=== PATIENT | male | born 1985 | race Caucasian/White ===

== ENCOUNTER 2017-12-06 17:23 | Observation (INO) ==
[2017-12-06] MEDS ORDERED: Ondansetron ODT 4 MG TAB.RAPDIS SL STA (18:56)
[2017-12-06] MEDS ORDERED: 0.9 % Sodium Chloride 1,000 ML IVC ONE ×2 (18:56→20:34)
--- NOTE | 2017-12-06 18:57 | Emergency Department Note ---
Disposition Clinical Impression: Dehydration, Hyperkalemia, GARCIA (acute kidney injury) Disposition: Admitted As Inpatient Condition: Good General Adult HPI - General Chief complaint: ED General Medical Stated complaint: dizziness, muscle cramps Time Seen by Provider: 12/06/17 18:30 Source: patient Mode of arrival: private vehicle Limitations: no limitations Nursing Notes Reviewed: Yes Vital Signs Reviewed: Yes - History of Present Illness HPI Narrative: Patient presents to the ED complaining of muscle cramps, nausea and vomiting. States he was working outside all day in the heat at the local [facility]. States he became very hot and had been sweating heavily and then suddenly stopped sweating. He reports one episode of vomiting while at work and 5 additional episodes since he arrived home. He still feels nauseous currently. He reports generalized muscle cramps throughout his body. Denies any fever or chills. No abdominal pain. No chest pain or shortness of breath. His only medical issues are GERD and COPD. He takes Zantac and Aleve as needed. He does not have a primary care doctor. He is not taking anything for his symptoms at home. Pain Scale: 8 - Related Data Home Medications Medication Instructions Recorded Confirmed Ranitidine HCl [Zantac 75] 75 mg PO DAILY 12/01/15 12/06/17 Naproxen Sodium [Aleve] 220 mg PO BID 03/30/16 12/06/17 Allergies Allergy/AdvReac Type Severity Reaction Status Date / Time diphenhydramine AdvReac Rash Verified 12/06/17 17:24 [From uAstin] Constitutional: Denies: fever, chills, weakness, weight change Eyes: Denies: eye pain, eye discharge, vision change ENT ED: Denies: ear pain, throat pain, dental pain, hearing loss, epistaxis, congestion, dysphagia Cardiovascular: Denies: chest pain, palpitations, dyspnea on exertion, edema, syncope Respiratory: Denies: cough, dyspnea, wheezes, hemoptysis, stridor Gastrointestinal: Reports: nausea, vomiting. Denies: abdominal pain, diarrhea, constipation, hematemesis, melena, hematochezia Genitourinary: Denies: urgency, dysuria, frequency, hematuria Musculoskeletal: Reports: myalgia (generalized) Integumentary: Denies: rash, abrasion, lesions Neurological: Denies: headache, weakness, numbness, paresthesias, confusion, abnormal gait, vertigo Psychiatric: Denies: anxiety, depression, suicidal thoughts, homicidal thoughts , auditory hallucinations, visual hallucinations Endocrine: Denies: fatigue Hematological/Lymphatic: Denies: easy bleeding, easy bruising Allergic/Immunologic: Denies: facial swelling, urticaria Past Medical History - Past Medical History Medical history: Reports: arthritis, COPD, GERD, other Surgical history: Reports: no surgical history Psychiatric history: Reports: no psych history - Social History Smoking Status: Current every day smoker Smokeless Tobacco Status: No Alcohol use: Reports: rarely Drug use: Reports: marijuana Physical Exam - General Limitations: no limitations General appearance: alert, in no apparent distress - Head Head exam: atraumatic, normocephalic, normal inspection - Eye Eye exam: Present: normal appearance, PERRL, EOMI - ENT ENT exam: normal exam, normal oropharynx, mucous membranes dry - Neck Neck exam: Present: normal inspection, full ROM, trachea midline - Chest Chest inspection: Present: normal inspection, symmetric chest wall rise - Respiratory Respiratory exam: Present: normal lung sounds bilaterally - Cardiovascular Cardiovascular exam: Present: regular rate, normal rhythm, normal heart sounds - Abdominal Exam Abdominal exam: Present: soft, Non-Tender. Absent: tenderness, distention, guarding, rebound, rigidity - Extremities Exam Extremities exam: Present: normal inspection, full ROM. Absent: tenderness, pedal edema - Back Exam Back exam: Present: normal inspection, full ROM. Absent: tenderness - Neurological Exam Neurological exam: Present: alert, oriented X3 - Psychiatric Psychiatric exam: Present: normal affect, normal mood - Skin Skin exam: Present: warm, dry, intact, normal color Course Course Narrative: Patient presents to the ED complaining of nausea, vomiting and muscle cramps after working outdoors all day. He arrives hemodynamically stable and nontoxic in appearance other than he is having obvious muscle spasms and cramping. I suspect heat cramps versus heat exhaustion versus dehydration or rhabdomyolysis. We will give IV fluids while laboratory studies are obtained. - Reevaluation(s) Reevaluation #1: CBC shows a leukocytosis, likely due to his vomiting. BMP is notable for hyperkalemia of 5.9 and creatinine of 2.53. Patient has no history of kidney disease and last creatinine on record over 2 years ago was normal. Calcium and creatine are also slightly elevated. Discussed with patient need for admission for continued hydration and treatment of his hyperkalemia and he is in agreement. We will continue with IV fluids, check EKG and give medications to treat his hyperkalemia. Reevaluation #2: Spoke to the hospitalist, Dr. Anderson, who has accepted the patient. Vital Signs Temperature 97.8 F 12/06/17 17:28 Pulse Rate 92 12/06/17 17:28 Respiratory Rate 18 12/06/17 17:28 Blood Pressure 119/81 12/06/17 17:28 O2 Sat by Pulse Oximetry 97 12/06/17 17:28 Temperature 97.9 F 12/06/17 23:49 Pulse Rate 80 12/06/17 23:49 Respiratory Rate 18 12/06/17 23:49 Blood Pressure 135/55 12/06/17 23:49 O2 Sat by Pulse Oximetry 95 12/06/17 23:49 Oxygen Delivery Oxygen Delivery Room Air Medical Decision Making - Medical Records Medical records reviewed: Yes I reviewed the patient's medical records. - Lab Data Lab results reviewed: Yes I reviewed the patient's lab results. Result diagrams: 12/06/17 19:06 12/06/17 19:06 Lab Results 12/06/17 12/06/17 Range/Units 19:06 19:06 WBC 20.5 H (4.3-11.1) K/mcL RBC 5.93 H (4.19-5.50) M/mcL Hgb 18.6 H (12.9-16.9) g/dL Hct 54.2 H (37.5-50.1) % MCV 91.4 (83.0-100.0) fL MCH 31.4 (28.0-33.3) pg MCHC 34.3 (31.6-35.5) g/dL RDW 13.4 (11.5-14.5) % Plt Count 362 (140-400) K/mcL MPV 8.4 L (9.4-12.4) fL Immature Gran % 0.4 (0-4) % Seg Neutrophils % 81.5 % Lymphocytes % 8.5 % Monocytes % 9.1 % Eosinophils % 0.1 % Basophils % 0.4 % Neutrophils # 16.7 H (1.6-8.9) K/mcL Lymphocytes # 1.7 (0.6-4.6) K/mcL Monocytes # 1.9 H (0.0-1.3) K/mcL Eosinophils # 0.0 (0.0-0.6) K/mcL Basophils # 0.1 (0.0-0.2) K/mcL Sodium 136 (136-145) mEq/L Potassium 5.9 H (3.5-5.1) mEq/L Chloride 97 L (98-107) mEq/L Carbon Dioxide 25 (23-29) mEq/L BUN 24 H (6-20) mg/dL Creatinine 2.53 H (0.70-1.30) mg/dL Est GFR ( Amer) 36 L (> 60) Est GFR (Non-Af Amer) 29 L (> 60) BUN/Creatinine Ratio 9 (6-26) Glucose 127 H (70-105) mg/dL Calculated Osmolality 288 (280-300) Calcium 11.0 H (8.6-10.3) mg/dL - EKG Data EKG #1 EKG attestation: Yes I reviewed and interpreted this EKG. EKG shows normal: sinus rhythm Rate: normal Rhythm: NSR [place]/QRS: normal Interpretation: other (peaked T-waves)
[2017-12-06 19:11] LABS: Basophils # 0.1 K/mcL (0.0-0.2); Basophils % 0.4 %; Eosinophils % 0.1 %; Hematocrit 54.2 % (37.5-50.1); Hemoglobin 18.6 g/dL (12.9-16.9); Immature Granulocytes % 0.4 % (0-4); Lymphocytes # 1.7 K/mcL (0.6-4.6); Lymphocytes % 8.5 %; Mean Corpuscular HGB Conc 34.3 g/dL (31.6-35.5); Mean Corpuscular Hemoglobin 31.4 pg (28.0-33.3); Mean Corpuscular Volume 91.4 fL (83.0-100.0); Mean Platelet Volume 8.4 fL (9.4-12.4); Monocytes # 1.9 K/mcL (0.0-1.3); Monocytes % 9.1 %; Neutrophils # 16.7 K/mcL (1.6-8.9); Platelet Count 362 K/mcL (140-400); Red Blood Count 5.93 M/mcL (4.19-5.50); Red Cell Distribution Width 13.4 % (11.5-14.5); Segmented Neutrophils % 81.5 %
[2017-12-06 19:27] LABS: Potassium 5.9 mEq/L (3.5-5.1)
[2017-12-06] MEDS ORDERED: *HR* Dextrose 50 % in Water (Syg) 50 ML SYRINGE IVP ONE (20:36)
[2017-12-06] MEDS ORDERED: Insulin Human Regular 10 UNIT in 0.9 % Sodium Chloride 10 ML IV ONE (20:36)
[2017-12-06] MEDS ORDERED: Naloxone 0.4 MG/ML INJ IVP PRN (20:53)
[2017-12-06] MEDS ORDERED: 0.9 % Sodium Chloride 1,000 ML IVC SCH (21:00)
[2017-12-07] MEDS ORDERED: Naloxone 0.4 MG/ML INJ IVP PRN (03:32)
[2017-12-07] MEDS ORDERED: 0.9 % Sodium Chloride 1,000 ML IVC SCH (03:32)
[2017-12-07 06:25] LABS: Basophils % 0.3 %; Eosinophils # 0.2 K/mcL (0.0-0.6); Eosinophils % 1.7 %; Hematocrit 43.2 % (37.5-50.1); Hemoglobin 14.5 g/dL (12.9-16.9); Immature Granulocytes % 0.4 % (0-4); Lymphocytes # 3.3 K/mcL (0.6-4.6); Lymphocytes % 25.9 %; Mean Corpuscular HGB Conc 33.6 g/dL (31.6-35.5); Mean Corpuscular Hemoglobin 30.9 pg (28.0-33.3); Mean Corpuscular Volume 91.9 fL (83.0-100.0); Mean Platelet Volume 8.7 fL (9.4-12.4); Monocytes # 1.2 K/mcL (0.0-1.3); Monocytes % 9.5 %; Platelet Count 293 K/mcL (140-400); Red Cell Distribution Width 13.2 % (11.5-14.5); Segmented Neutrophils % 62.2 %
[2017-12-07 07:00] LABS: BUN/Creatinine Ratio 20 (6-26); Blood Urea Nitrogen 20 mg/dL (6-20); Calcium 9.1 mg/dL (8.6-10.3); Carbon Dioxide 27 mEq/L (23-29); Chloride 104 mEq/L (98-107); Glucose 114 mg/dL (70-105); Osmolality,Calculated 291 (280-300); Potassium 3.2 mEq/L (3.5-5.1); Sodium 139 mEq/L (136-145); eGFR For Non-African Americans > 60 (> 60)
[2017-12-07] MEDS ORDERED: Famotidine 20 MG TABLET PO SCH (09:00)
[2017-12-07 11:21] VITALS: BP 144/68
--- NOTE | 2017-12-07 12:53 | Internal Med History&Physical ---
Date of Encounter: 12/07/17 Time of Encounter: 12:30 Assessment and Plan (1) GARCIA (acute kidney injury) Current visit: Yes Status: Acute Likely secondary to dehydration from diaphoresis and vomiting. IV fluids were ordered through emergency room. (2) Neutrophilic leukocytosis Current visit: Yes Status: Acute Possibly reactive. Significant improvement of WBC and normalization of left shift present on follow-up labs today. (3) Hyperkalemia Current visit: Yes Status: Acute He was given Kayexalate in emergency room. Internal Medicine - H&P: HPI Chief complaint: Weakness Admitted From: Emergency Dept Plans for Post Hospital Care: Home History of present illness: Mr. 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 He was evaluated in emergency room and found to have hyperkalemia, leukocytosis with left shift, hypercalcemia, and acute renal failure. He was admitted to [facility] floor for ongoing care needs. He states he has not vomited and since admission from emergency room. He feels back to his baseline now and wishes to be discharged home. He has ambulated in the room and tolerated food and fluids without difficulty. Past Med Surg Social Fam HX - Past Medical History Medical history: arthritis, COPD, GERD, other Additional medical history: CARPAL TUNEL RIGHT HAND. RA Psychiatric history: no psych history - Past Surgical History Surgical History: no surgical history Additional surgical history: PT DENIES ANY SURGERIES - Social History Smoking Status: Current every day smoker Smokeless Tobacco Status: No Alcohol use: rarely Drug use: marijuana Internal Medicine - H&P: Meds Ranitidine HCl [Zantac 75] 75 mg PO DAILY 12/01/15 [History] Naproxen Sodium [Aleve] 220 mg PO BID 03/30/16 [History] 3 Allergy/AdvReac Type Severity Reaction Status Date / Time diphenhydramine AdvReac Rash Verified 12/06/17 17:24 [From Benadryl] All Systems PM: A 10-system review of systems was performed and is negative for pertinent findings except as documented above in the HPI. Review of systems: Gen.: He states his weight has been stable the past few months Cardiovascular: He denies NH hypertension heart failure angina DVT or pulmonary embolus Respiratory: He has smoked since age 4 up to 2 packs per day. He has a diagnosis of COPD/emphysema but does not use home oxygen. GI: Denies disorders of his liver gallbladder or exocrine pancreas : He has had kidney stones in the past. He denies other kidney bladder prostate disorders Neurologic: He denies large distribution strokes or seizures. Endocrine: He denies diabetes thyroid disease or hyperlipidemia Hematology/oncology: He denies blood disorders cancers or anemia Psychiatric: He denies anxiety depression or other mental health issues [place] skeletal: He has been diagnosed with DJD, rheumatoid arthritis, tendinitis , carpal tunnel syndrome, and chronic low back pain. - Constitutional Vitals: Temp Pulse Resp BP Pulse Ox 97.6 F 59 14 144/68 98 12/07/17 11:20 12/07/17 11:20 12/07/17 11:20 12/07/17 11:20 12/07/17 11:20 Exam: Gen.: He is a well-developed well-nourished male who appears in no acute distress at present time. HEENT: Head is atraumatic and normocephalic. Eyes: EOMI. There is no scleral icterus. Mouth: Mucosa is moist. Neck: Supple and nontender. There is no thyromegaly or adenopathy noted. Heart: Regular without murmurs gallops or ectopics Lungs: No wheezes or crackles are heard. Abdomen: Soft and nontender. No masses or guarding are noted. Extremities: There is no cyanosis edema or clubbing noted. Dorsalis pedis and posterior tibial pulses are 1-2 over 2 bilaterally. Neurologic: Mental status: He is talkative and a good historian. Cranial nerves : Smile is symmetric. Forehead wrinkles bilaterally. Tongue protrudes midline. EOMI. Motor: There is no pronator drift. Cerebellar: Finger to nose is intact bilaterally. Skin: Warm and dry Internal Med - H&P Results - Labs CBC & Chem 7: 12/07/17 05:05 12/07/17 05:05 Labs: Short CBC 12/07/17 Range/Units 05:05 WBC 12.8 H (4.3-11.1) K/mcL Hgb 14.5 D (12.9-16.9) g/dL Hct 43.2 (37.5-50.1) % Plt Count 293 (140-400) K/mcL Neutrophils # 8.0 (1.6-8.9) K/mcL BMP 12/07/17 05:05 Sodium 139 Potassium 3.2 L D Chloride 104 Carbon Dioxide 27 BUN 20 Creatinine 0.98 Glucose 114 H Calcium 9.1 - VTE Reasons for not Prescribing Prophylaxis: Treatment not Indicated - Low risk for VTE
--- NOTE | 2017-12-07 13:04 | Discharge Summary ---
Date of Encounter: 12/07/17 Time of Encounter: 12:30 - Discharge Diagnosis (1) GARCIA (acute kidney injury) Priority: Primary Status: Acute (2) Neutrophilic leukocytosis Priority: Secondary Status: Acute (3) Hyperkalemia Priority: Secondary Status: Acute Hospital course: Mr. 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 He was evaluated in emergency room and found to have hyperkalemia, leukocytosis with left shift, hypercalcemia, and acute renal failure. He was admitted to [facility] for ongoing care needs. Initial orders were written by the emergency room physician. I saw him on December 07 and performed a history and physical. He was given IV fluids and had no further vomiting. WBC improved to 12.8 with resolution of left shift by the following day. Potassium decreased to 3.2 following Kayexalate administration. He will be given a dose of potassium chloride 10 mEq prior to discharge. Azotemia resolved with creatinine decreasing to 0.98. Hypercalcemia resolved. When I saw him he felt improved and wished to be discharged home which I felt was reasonable. I encouraged him to discontinue smoking. I explained the importance of adequate fluid and electrolyte intake at the workplace. He may return to work tomorrow if stable. - Time Spent with Patient Total time spent providing and/or coordinating discharge services: - Discharge Medications Home Medications: Ranitidine HCl [Zantac 75] 75 mg PO DAILY 12/01/15 [History] Naproxen Sodium [Aleve] 220 mg PO BID 03/30/16 [History] Allergies/Adverse Reactions: 3 Allergy/AdvReac Type Severity Reaction Status Date / Time diphenhydramine AdvReac Rash Verified 12/06/17 17:24 [From Benadryl] Date of admission: 12/06/17 21:13 Primary care physician: PCP NONE - Constitutional Vitals: Temp Pulse Resp BP Pulse Ox 97.6 F 59 14 144/68 98 12/07/17 11:20 12/07/17 11:20 12/07/17 11:20 12/07/17 11:20 12/07/17 11:20 - Patient Status Disposition: Home, Self-Care Condition: Good - Discharge Instructions Follow Up With: NONE,PCP [Primary Care Provider] - 1 week - Diet and Activity Activity: resume usual activities as tolerated Diet: advance to your usual diet - VTE Reasons for not Prescribing Prophylaxis: Treatment not Indicated - Low risk for VTE
--- NOTE | 2017-12-10 12:35 | Electrocardiograph Report ---
[address] [address] Test Date: 2017-12-06 Pat Name: Mo Raza Department: [id number] Room: [facility] Gender: M [employer] Set Up Operator: [id number] : 1985 Requested By: Basia Johnson Order Number: [id number] Reading MD: Db Louis Measurements Intervals Nelson Rate: 72 P: 63 RI: 138 QRS: 57 QRSD: 90 T: 75 QT: 374 QTc: 399 Interpretive Statements SINUS RHYTHM WITH SINUS ARRHYTHMIA Electronically Signed On 12-10-2017 12:33:31 EDT by Db Louis
== END 2017-12-07 13:38 | disposition home or self-care (01) ==
LOC: EMEROOPIK 17:23 → INPPIK 17:23
PROVIDERS: ADMIT Internal Medicine; ATTEND Internal Medicine